=== PATIENT | female | born 1990 | race Two or more races ===

== ENCOUNTER 2019-04-29 19:14 | Emergency (ER) | payer MEDICAID ==
[~2019-04-29] VITALS: Ht 160 cm; Wt 74.5 kg
[2019-04-29 20:59] LABS: APPEARANCE,URINE CLOUDY (CLEAR); BILIRUBIN,URINE NEGATIVE (NEGATIVE); GLUCOSE, URINE (UA) NEGATIVE (NEGATIVE); KETONES,URINE NEGATIVE (NEGATIVE); LEUKOCYTE ESTERASE ,URINE LARGE (NEGATIVE); NITRATE,URINE NEGATIVE (NEGATIVE); OCCULT BLOOD,URINE LARGE (NEGATIVE); PH,URINE 5.5 (5.0-8.0); PROTEIN,URINE SEE CONFIRM (NEGATIVE); UROBILINOGEN,URINE 0.2 mg/dL (<=1.0)
[2019-04-29 21:08] LABS: BACTERIA,URINE Few /HPF (None Seen); RBC,URINE 26-50 /HPF (0-2); SQUAMOUS EPITHELIAL CELL,UR Few /LPF (None Seen); SULFOSALICYLIC ACID,URINE 2+ (Negative); WBC,URINE 51-100 /HPF (0-5)
[2019-04-29 22:00] VITALS: BP 147/96
== END 2019-04-29 22:18 | disposition home or self-care (01) ==
LOC: EMS 19:19
DX: N76.0 Acute vaginitis (principal); F32.9 Major depressive disorder, single episode, unspecified; F13.10 Sedative, hypnotic or anxiolytic abuse, uncomplicated
CPT/HCPCS: 87086; 87210; 87491; 87591